=== PATIENT | male | born 1975 | race African-American/Black ===

== ENCOUNTER 2017-01-04 11:37 | Emergency (ER) | payer SELFPAY ==
[~2017-01-04] VITALS: Ht 170.2 cm; Wt 80.7 kg
[2017-01-04] MEDS ORDERED: IV NORMAL SALINE 1000ML BAG 1,000 ML IV ONE (12:15)
--- NOTE | 2017-01-04 12:18 | PHYS DOC ---
Past Medical History Past Medical History: Depression, Diabetes-Type II, Hypertension, Seizure, Other Additional Past Medical Histor: ADHD Past Surgical History: No Surgical History Alcohol Use: Rarely Drug Use: None Adult General Chief Complaint Chief Complaint: SEIZURE HPI HPI Patient is a 41 year old male brought by EMS from his work with the report of a 1 minute generalized seizure. 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 He was feeling fine today, had a 1 minute generalized seizure and someone called 911. He now feels fine again. The patient has had seizures in the past when he has been taking Effexor, Zoloft, or Wellbutrin. He has never had a seizure when not taking an SSRI. He recently started taking one again. The patient takes Adderall for ADHD. He is in the area for a contract and his primary care physician is in [place]. He actually has an appointment to see his doctor in [place] tomorrow, was planning to drive there. He had run out of Adderall so his doctor recommended that he take [id number] Primatene tablet instead. He took one of those this morning. The patient said the first time he had a seizure he was admitted to the hospital for 2 days in [place] and he had a full seizure workup including a CT scan of his head. It's been a few years since his last seizure. The seizures were attributed to SSRI use. The patient denies illicit drugs. He is prescribed metformin for diabetes and lisinopril for hypertension/kidney protection, but he does not really take those medicines regularly because he believes he controls his diabetes with diet and exercise. The patient was fine today prior to having had the seizure. He says he is typically tachycardic after a seizure. Review of Systems Review of Systems Constitutional: Denies fever or chills [] Eyes: Denies change in visual acuity, redness, or eye pain [] HENT: He did bite his tongue Respiratory: Denies cough or shortness of breath [] Cardiovascular: Denies chest pain GI: Denies abdominal pain, nausea, vomiting, bloody stools or diarrhea [] : Denies dysuria or hematuria [] Musculoskeletal: Denies back pain or joint pain [] Integument: Denies rash or skin lesions [] Neurologic: Denies headache, focal weakness or sensory changes [] Endocrine: States his blood sugar runs 120 or below Current Medications Current Medications Current Medications Medications (Trade) Dose Ordered Sig/Mario Start Time Stop Time Status Last Admin Dose Admin Sodium Chloride 1,000 ml @ 1,000 mls/hr 1X ONCE 01/04/17 12:15 01/04/17 13:14 DC 01/04/17 13:12 1,000 MLS/HR Allergies Allergies Allergies Coded Allergies Type Severity Reaction Last Updated Verified bupropion Adverse Reaction Severe seizure 01/04/17 Yes sertraline Adverse Reaction Severe seizure 01/04/17 Yes venlafaxine Adverse Reaction Severe seizure 01/04/17 Yes Physical Exam Physical Exam Constitutional: Well developed, well nourished, no acute distress, non-toxic appearance. Alert, mentating normally, tachycardic in the 130s. HENT: Normocephalic, atraumatic, bilateral external ears normal, oropharynx moist, no oral exudates, nose normal. Left side of the tongue has a bruise/ abrasion consistent with status post generalized seizure, no injury to teeth or lips noted. Eyes: PERRLA, EOMI, conjunctiva normal, no discharge. [] Neck: Normal range of motion, no tenderness, supple, no stridor. [] Cardiovascular:Heart rate regular rhythm, no murmur , tachycardic about 140 Lungs & Thorax: Bilateral breath sounds clear to auscultation [] Abdomen: Bowel sounds normal, soft, no tenderness, no masses, no pulsatile masses. [] Skin: Warm, dry, no erythema, no rash. [] Extremities: No tenderness, no cyanosis, no clubbing, ROM intact, no edema. [] Neurologic: Alert and oriented X 3, normal motor function, normal sensory function, no focal deficits noted. Parquet Floor Layer'S Helper equal bilaterally and 5 over 5, moving all extremities normally, cognitive function normal. Current Patient Data Vital Signs Vital Signs Date Time Temp Pulse Resp B/P (MAP) Pulse Ox O2 Delivery O2 Flow Rate FiO2 01/04/17 11:40 98.5 141 16 165/69 (101) 99 98.5 Lab Values Laboratory Tests Test 01/04/17 11:44 01/04/17 12:20 Glucose (Fingerstick) 172 mg/dL (70-99) H White Blood Count 11.2 x10^3/uL (4.0-11.0) H Red Blood Count 5.37 x10^6/uL (4.30-5.70) Hemoglobin 14.8 g/dL (13.0-17.5) Hematocrit 45.2 % (39.0-53.0) Mean Corpuscular Volume 84 fL (79-100) Mean Corpuscular Hemoglobin 28 pg (25-35) Mean Corpuscular Hemoglobin Concent 33 g/dL (31-37) Red Cell Distribution Width 12.8 % (11.5-14.5) Platelet Count 257 x10^3/uL (140-400) Neutrophils (%) (Auto) 58 % (31-73) Lymphocytes (%) (Auto) 37 % (24-48) Monocytes (%) (Auto) 5 % (0-9) Eosinophils (%) (Auto) 1 % (0-3) Basophils (%) (Auto) 0 % (0-3) Neutrophils # (Auto) 6.4 x10^3uL (1.8-7.7) Lymphocytes # (Auto) 4.1 x10^3/uL (1.0-4.8) Monocytes # (Auto) 0.5 x10^3/uL (0.0-1.1) Eosinophils # (Auto) 0.1 x10^3/uL (0.0-0.7) Basophils # (Auto) 0.0 x10^3/uL (0.0-0.2) Sodium Level 135 mmol/L (136-145) L Potassium Level 3.9 mmol/L (3.5-5.1) Chloride Level 98 mmol/L (98-107) Carbon Dioxide Level 22 mmol/L (21-32) Anion Gap 15 (6-14) H Blood Urea Nitrogen 18 mg/dL (8-26) Creatinine 1.5 mg/dL (0.7-1.3) H Estimated GFR (Cockcroft-Gault) 52.1 BUN/Creatinine Ratio 12 (6-20) Glucose Level 220 mg/dL (70-99) H Calcium Level 8.8 mg/dL (8.5-10.1) Total Bilirubin 0.3 mg/dL (0.2-1.0) Aspartate Amino Transferase (AST) 28 U/L (15-37) Alanine Aminotransferase (ALT) 58 U/L (16-63) Alkaline Phosphatase 65 U/L (46-116) Total Protein 8.1 g/dL (6.4-8.2) Albumin 3.9 g/dL (3.4-5.0) Albumin/Globulin Ratio 0.9 (1.0-1.7) L Urine Opiates Screen Neg (NEG) Urine Methadone Screen Neg (NEG) Urine Barbiturates Neg (NEG) Urine Phencyclidine Screen Neg (NEG) Urine Amphetamine/Methamphetamine Neg (NEG) Urine Benzodiazepines Screen Neg (NEG) Urine Cocaine Screen Neg (NEG) Urine Cannabinoids Screen Neg (NEG) Urine Ethyl Alcohol Neg (NEG) Laboratory Tests 01/04/17 12:20 Laboratory Tests 01/04/17 12:20 EKG EKG 12-lead EKG read by me. Sinus tachycardia heart rate 141. No rhythm disturbances. Normal QRS. There are no ST or T wave changes indicative of ischemia or infarction. No STEMI. 1142 [] Radiology/Procedures Radiology/Procedures [] Course & Med Decision Making Course & Med Decision Making Pertinent Labs and Imaging studies reviewed. (See chart for details) 41-year-old male had a brief, self-limited, generalized seizure and is now back to normal. He has a history of previous seizures that sound like they were brought on by SSRIs. He is quite tachycardic but he states that's typical for him after his seizure, and he also took a dose of Primatene for over-the- counter treatment of ADHD. Discussed with the patient that we will check some labs and give him a liter of fluids. He is agreeable to that plan. Recheck of the patient after labs are back. He is resting comfortably with a heart rate of 110. He actually was just having his IV fluids up, so his heart rate improved quite a bit with just rest. See instructions for plan. I did emphasize to the patient that he should not drive until released by a physician to do so. [] Dragon Disclaimer Dragon Disclaimer This electronic medical record was generated, in whole or in part, using a voice recognition dictation system. Departure Departure Impression: Primary Impression: Generalized seizure Additional Impression: SSRI (selective serotonin reuptake inhibitor) causing adverse effect in therapeutic use Disposition: 01 HOME, SELF-CARE Condition: IMPROVED Referrals: BING HONRE MD, FERILYN MD Patient Instructions: Nonepileptic Seizures-Brief Additional Instructions: As we discussed, NO driving until you're cleared to drive by a physician. I believe you should avoid the class of medicines called SSRIs in the future. Follow-up with primary care physician for regular medication prescriptions and to discuss treatment of your ADHD and whether or not any further evaluation of the seizure is indicated. I also gave you a referral to neurology. The neurologist will help determine when it is safe for you to return to driving. Problem Qualifiers GEOVANNA COSTELLO MD Jan 04, 2017 12:18
[2017-01-04 12:29] LABS: BASO % 0 % (0-3); EOS % 1 % (0-3); HEMATOCRIT 45.2 % (39.0-53.0); HEMOGLOBIN 14.8 g/dL (13.0-17.5); LYMPH # 4.1 x10^3/uL (1.0-4.8); LYMPH % 37 % (24-48); MEAN CORPUSCULAR HEMOGLOBIN 28 pg (25-35); MEAN CORPUSCULAR HGB CONC 33 g/dL (31-37); MEAN CORPUSCULAR VOLUME 84 fL (79-100); MONO % 5 % (0-9); NEUT % 58 % (31-73); PLATELET COUNT 257 x10^3/uL (140-400); RED BLOOD COUNT 5.37 x10^6/uL (4.30-5.70); RED CELL DISTRIBUTION WIDTH 12.8 % (11.5-14.5); WHITE BLOOD COUNT 11.2 x10^3/uL (4.0-11.0)
--- NOTE | 2017-01-04 12:31 | EKG ---
[facility] [address] [place] [address] Test Date: 2017-01-04 Test Time: 11:42:32 Pat Name: KIRBY CARBAJAL Department: Room: Gender: M [employer] Program Internship: : 1975 Requested By: GEOVANNA COSTELLO Order Number: [id number] Reading MD: Gerald Conway Measurements Intervals [place] Rate: 141 P: -55 RI: 88 QRS: 48 QRSD: 80 T: 43 QT: 274 QTc: 422 Interpretive Statements SINUS TACHYCARDIA LEFT ATRIAL ABNORMALITY NONSPECIFIC ST-T WAVE CHANGES. RI6.01 Unconfirmed report No previous ECG available for comparison Electronically Signed On 01-08-2017 10:33:25 CDT by Gerald Conway
[2017-01-04 12:39] LABS: BARBITURATES NEG (NEG); BENZODIAZEPINES NEG (NEG); CANNABINOIDS NEG (NEG); COCAINE NEG (NEG); METHADONE NEG (NEG); OPIATES NEG (NEG); PHENCYCLIDINE NEG (NEG)
[2017-01-04 12:44] LABS: CALCIUM 8.8 mg/dL (8.5-10.1); CREATININE 1.5 mg/dL (0.7-1.3); GFR 52.1; POTASSIUM 3.9 mmol/L (3.5-5.1)
[2017-01-04 12:50] LABS: ALBUMIN 3.9 g/dL (3.4-5.0); ALBUMIN/GLOBULIN RATIO 0.9 (1.0-1.7); TOTAL BILIRUBIN 0.3 mg/dL (0.2-1.0); TOTAL PROTEIN 8.1 g/dL (6.4-8.2)
[2017-01-04 14:35] VITALS: BP 170/81
== END 2017-01-04 14:43 | disposition home or self-care (01) ==
LOC: ER 11:37
DX: T43.225A Adverse effect of selective serotonin reuptake inhibitors, initial encounter (principal); R56.9 Unspecified convulsions; R00.0 Tachycardia, unspecified; E11.9 Type 2 diabetes mellitus without complications; F90.9 Attention-deficit hyperactivity disorder, unspecified type; I10 Essential (primary) hypertension; F32.9 Major depressive disorder, single episode, unspecified; Z88.8 Allergy status to other drugs, medicaments and biological substances; Y92.89 Other specified places as the place of occurrence of the external cause
CPT/HCPCS: 36415; 80053; 80305; 80320; 82962; 85027; 93005; 96360; 99285; J7030; G0480; G0481

== ENCOUNTER 2017-12-31 12:27 | Emergency (ER) | payer SELFPAY ==
[2017-12-31 13:18] LABS: ADD MAN DIFF? NO
[2017-12-31 13:22] LABS: BASO % 1 % (0-3); EOS # 0.1 x10^3/uL (0.0-0.7); EOS % 1 % (0-3); HEMOGLOBIN 15.3 g/dL (13.0-17.5); LYMPH # 2.6 x10^3/uL (1.0-4.8); LYMPH % 32 % (24-48); MEAN CORPUSCULAR HEMOGLOBIN 28 pg (25-35); MEAN CORPUSCULAR HGB CONC 34 g/dL (31-37); MEAN CORPUSCULAR VOLUME 83 fL (79-100); MONO # 0.6 x10^3/uL (0.0-1.1); MONO % 7 % (0-9); NEUT # 4.8 x10^3uL (1.8-7.7); NEUT % 59 % (31-73); PLATELET COUNT 217 x10^3/uL (140-400); RED BLOOD COUNT 5.39 x10^6/uL (4.30-5.70); RED CELL DISTRIBUTION WIDTH 13.5 % (11.5-14.5); WHITE BLOOD COUNT 8.2 x10^3/uL (4.0-11.0)
[2017-12-31 13:32] LABS: ANION GAP 14 (6-14); BLOOD UREA NITROGEN 15 mg/dL (8-26); BUN/CREATININE RATIO 9 (6-20); CARBON DIOXIDE 23 mmol/L (21-32); CHLORIDE 99 mmol/L (98-107); CREATININE 1.6 mg/dL (0.7-1.3); GFR 58.2; GLUCOSE 166 mg/dL (70-99); POTASSIUM 5.1 mmol/L (3.5-5.1); SODIUM 136 mmol/L (136-145)
[2017-12-31] MEDS: IV NORMAL SALINE 1000ML BAG 1,000 ML IV (13:37)
[2017-12-31] MEDS: levETIRAcetam 1,000 MG in IV DEXTROSE 5% 100ML 100 ML IV (13:37)
[2017-12-31 13:38] LABS: ALBUMIN/GLOBULIN RATIO 0.9 (1.0-1.7); ALK PHOS 88 U/L (46-116); ALT (SGPT) 53 U/L (16-63); AST (SGOT) 27 U/L (15-37); TOTAL BILIRUBIN 0.3 mg/dL (0.2-1.0); TOTAL PROTEIN 8.5 g/dL (6.4-8.2)
== END 2017-12-31 16:22 | disposition home or self-care (01) ==
LOC: ER 12:27
DX: G40.909 Epilepsy, unspecified, not intractable, without status epilepticus (principal); R00.0 Tachycardia, unspecified; E86.0 Dehydration; F32.9 Major depressive disorder, single episode, unspecified; E11.9 Type 2 diabetes mellitus without complications; I10 Essential (primary) hypertension; F90.9 Attention-deficit hyperactivity disorder, unspecified type; Z88.8 Allergy status to other drugs, medicaments and biological substances
CPT/HCPCS: 36415; 80053; 85025; 93005; 96365; 96375; 99285-25; J1953; J2060; J7030

== ENCOUNTER → 2019-06-09 | Outpatient (CLI) | payer BC ==
[2017-12-31 15:47] VITALS: BP 160/93
[~2019-06-09] MED LIST: LEVE500T56 PO
[2019-06-09 16:18] LABS: BASO % 1 % (0-3); EOS # 0.2 x10^3/uL (0.0-0.7); EOS % 3 % (0-3); HEMATOCRIT 40.3 % (39.0-53.0); HEMOGLOBIN 13.2 g/dL (13.0-17.5); LYMPH # 1.8 x10^3/uL (1.0-4.8); LYMPH % 29 % (24-48); MEAN CORPUSCULAR HEMOGLOBIN 28 pg (25-35); MEAN CORPUSCULAR HGB CONC 33 g/dL (31-37); MEAN CORPUSCULAR VOLUME 84 fL (79-100); MONO # 0.5 x10^3/uL (0.0-1.1); MONO % 8 % (0-9); NEUT # 3.6 x10^3/uL (1.8-7.7); NEUT % 59 % (31-73); PLATELET COUNT 291 x10^3/uL (140-400); RED CELL DISTRIBUTION WIDTH 13.4 % (11.5-14.5); WHITE BLOOD COUNT 6.1 x10^3/uL (4.0-11.0)
[2019-06-09 16:43] LABS: BARBITURATES NEG (NEG); BENZODIAZEPINES NEG (NEG); CANNABINOIDS NEG (NEG); COCAINE NEG (NEG); METHADONE NEG (NEG); OPIATES NEG (NEG); PHENCYCLIDINE NEG (NEG)
[2019-06-09 16:47] LABS: AMPHETAMINE/METHAMPHETAMINE POS (NEG)
[2019-06-09 16:55] LABS: ALBUMIN 3.7 g/dL (3.4-5.0); ALBUMIN/GLOBULIN RATIO 0.9 (1.0-1.7); CALCIUM 9.1 mg/dL (8.5-10.1); CREATININE 1.2 mg/dL (0.7-1.3); GFR 80.3; POTASSIUM 4.5 mmol/L (3.5-5.1); TOTAL BILIRUBIN 0.3 mg/dL (0.2-1.0)
== END | disposition home or self-care (01) ==
LOC: LAB 16:00
PROVIDERS: ATTEND Psychiatry & Neurology Neurology
DX: R56.9 Unspecified convulsions (principal)
CPT/HCPCS: 36415; 80053; 80307; 84443; 85025

== ENCOUNTER → 2019-06-26 | Outpatient (CLI) | payer BC ==
[2017-12-31 15:47] VITALS: BP 160/93
--- NOTE | 2019-06-27 12:40 | EEG ---
DATE OF SERVICE: 06/26/2019 EEG NUMBER: [id number]. OBJECTIVE: This is a 44-year-old -[place] male patient with history of seizure. EEG was requested to evaluate seizure activity. METHODS: Twenty electrodes were applied according to the international 10-20 electrode placement system. EKG monitoring, hyperventilation, intermittent photic stimulation, monopolar and bipolar montages are routinely utilized. The record was obtained on a digital system with video monitoring. FINDINGS: 1. Background: The patient was recorded in the awake, drowsy and sleep states. The overall background amplitude is 10-20 microvolts. A posterior dominant rhythm of 8-10 Hz is observed. 2. Abnormalities: No specific epileptiform discharge or electrographic seizure is seen. No focal or diffuse slowing. 3. Activation: Hyperventilation was performed with good efforts and normal response. Intermittent photic stimulation was performed with photic driving. No specific epileptiform discharge or electrographic seizure induced by hyperventilation or intermittent photic stimulation. IMPRESSION: This EEG is a normal study for the awake, drowsy, and sleep states. No focal, lateralizing, specific epileptiform discharge, or electrographic seizure is seen. Suggest long-term video EEG monitoring if has further seizure or seizure-like episodes. JOSÉ MIGUEL VILCHIS MD DR: DILLON/enlda JOB#: [id number] / [id number] AUGIE
== END | disposition home or self-care (01) ==
LOC: RT 08:20
PROVIDERS: ATTEND Psychiatry & Neurology Neurology
DX: R56.9 Unspecified convulsions (principal)
CPT/HCPCS: 95816

== ENCOUNTER → 2020-03-15 | Outpatient (CLI) | payer BC ==
[2017-12-31 15:47] VITALS: BP 160/93
--- NOTE | 2020-03-16 09:15 | SLEEP ---
DATE OF STUDY: 03/15/2020 HOME SLEEP STUDY OBJECTIVE: The patient is a 45-year-old male with snoring, excessive somnolence, and history of seizures. Height 67 inches, weight 172 pounds, and body mass index 26.9. [place] sleep score 12 . INTERPRETATION: The apnea-hypopnea index is 16.5 events per hour of sleep. There is respiratory event related arousals throughout the study that were not counted in the apnea-hypopnea index. The minimum desaturation is 88%. No significant cardiac arrhythmias observed. IMPRESSION: This home sleep study shows obstructive sleep apnea and hypopnea. RECOMMENDATIONS: The patient should undergo CPAP titration either using automated BiPAP or returning to the lab for an attended study. Thank you for letting us help with the patient's care. KATERYNA MOONEY MD DR: FRANCISCO/nelda JOB#: [id number] / [id number] NAYELI Torrez VAN DO
== END | disposition home or self-care (01) ==
LOC: RT 08:58
PROVIDERS: ATTEND Nurse Practitioner Family
DX: G47.33 Obstructive sleep apnea (adult) (pediatric) (principal); R06.83 Snoring; R56.9 Unspecified convulsions; R40.0 Somnolence; F32.9 Major depressive disorder, single episode, unspecified
CPT/HCPCS: G0399